=== PATIENT | male | born 1965 | race Two or more races ===

== ENCOUNTER 2017-10-18 09:18 | Day surgery (SDC) | payer OTHER ==
[2017-10-18] MEDS ORDERED: MIDAZOLAM 1 MG/ML 2 ML INJ ×3 (10:47→10:48)
[2017-10-18] MEDS ORDERED: FENTAnyl 50 MCG/ML VIAL (10:47)
== END 2017-10-18 12:08 | disposition home or self-care (01) ==
LOC: GIL 09:18
DX: Z12.11 Encounter for screening for malignant neoplasm of colon (principal); K64.8 Other hemorrhoids
CPT/HCPCS: 45378